=== PATIENT | female | born 1975 | race Caucasian/White ===

== ENCOUNTER 2017-11-30 14:11 | Emergency (ER) | payer OTHER ==
[2017-11-30] MEDS ORDERED: DUONEB 0.5-3 MG/3 ml Neb IH ONE ×2 (14:23→14:59)
[2017-11-30] MEDS ORDERED: TYLENOL 325 MG PO ONE (14:25)
[2017-11-30] MEDS ORDERED: Sodium Chloride 0.9% 1000 ML 1,000 ML IV SCH (14:30)
--- NOTE | 2017-11-30 14:30 | ERPHSYRPT ---
- History of Present Illness Time Seen by Provider: 11/30/17 14:17 Source: patient Physician History: CC: 42 y/o patient recently moved here from [place]. She has 1-2 day hx of fever, chills, rhinorrhea, congestion, ear pressure, sore throat. She now has cough which has caused shortness of breath. No V/D. No rash. LMP Oct. Meds: Lisinopril/HCTZ ILL: HTN. No hx of asthma. Social: Smoker Timing/Duration: day(s) (1-2) Cough Quality/Degree: moderate Allergies/Adverse Reactions: No Known Drug Allergies Allergy (Unverified 03/19/12 16:37) Home Medications: Hydrochlorothiazide 25 mg [hydroDIURIL 25 MG] 25 mg DAILY 11/30/17 [ History] Lisinopril 10 mg [Zestril 10 MG] 10 mg DAILY 11/30/17 [History] Hx Tetanus, Diphtheria Vaccination/Date Given: Yes (2010) - Review of Systems Constitutional: Fever, Chills, Fatigue, Malaise Eyes: No Symptoms Ears, Nose, & Throat: Nose Congestion, Throat Pain Respiratory: Cough, Dyspnea Cardiac: No Chest Pain Abdominal/Gastrointestinal: No Abdominal Pain, No Vomiting, No Diarrhea Genitourinary Symptoms: No Dysuria Skin: No Rash Neurological: Headache All Other Systems: Reviewed and Negative - Past Medical History Pertinent Past Medical History: No - Past Surgical History Past Surgical History: Yes Gastrointestinal: Cholecystectomy Female Surgical History: Section, Tubal Ligation - Social History Smoking Status: Current every day smoker How long have you smoked: 20 Exposure to second hand smoke: Yes Drug Use: none Patient Lives Alone: No - Female History Hx Now: No - Nursing Vital Signs Nursing Vital Signs: Initial Vital Signs Temperature 98.1 F 11/30/17 14:22 Pulse Rate 106 H 11/30/17 14:22 Respiratory Rate 18 11/30/17 14:22 Blood Pressure 140/86 11/30/17 14:22 O2 Sat by Pulse Oximetry 97 11/30/17 14:22 Pain Scale Pain Intensity 8 - Physical Exam General Appearance: alert Eye Exam: PERRL/EOMI Ears, Nose, Throat Exam: normal ENT inspection, dry mucous membranes Neck Exam: normal inspection, non-tender, supple Respiratory Exam: respiratory distress (appears breathless), wheezing (faint) Cardiovascular Exam: regular rate/rhythm, No murmur Gastrointestinal/Abdomen Exam: soft, No tenderness, No distention Back Exam: normal inspection, normal range of motion Extremity Exam: normal inspection, normal range of motion, No calf tenderness, No pedal edema Neurologic Exam: alert, oriented x 3, cooperative, 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 nml as tested, sensation nml, No motor deficits Skin Exam: warm, dry, No rash SpO2 Interpretation: normal SpO2: 99 Oxygen Delivery: Room Air - Course Nursing assessment & vital signs reviewed: Yes EKG Interpreted by Me: RATE (90), Sinus Rhythm, NORMAL AXIS, NORMAL INTERVALS ( QTc 483), NORMAL QRS, NORMAL ST-T - Radiology Exams cxr X-ray Interpretation: Reviewed by me, Negative, No Pneumonia Ordered Tests: Active Orders 24 hr Category Date Time Status House Coordinator STAT Care 11/30/17 14:24 Active EKG-ER Only STAT Care 11/30/17 15:34 Active IV Insertion STAT Care 11/30/17 14:23 Active Pulse Oximetry (ED) STAT Care 11/30/17 14:23 Active CHEST 2 VIEWS (PA AND LAT) Stat Exams 11/30/17 14:23 Taken CBC W DIFF Stat Lab 11/30/17 15:00 Completed CMP Stat Lab 11/30/17 15:00 Completed D-DIMER QUANTITATION Stat Lab 11/30/17 15:00 Completed HCG QUALITATIVE,SERUM Stat Lab 11/30/17 15:00 Completed Lactic Acid Stat Lab 11/30/17 14:23 Completed Lactic Acid Stat Lab 11/30/17 17:08 Results MAGNESIUM Stat Lab 11/30/17 15:00 Completed Manual Differential NC Stat Lab 11/30/17 15:00 Completed VENOUS BLOOD GAS Stat Lab 11/30/17 17:02 Completed VENOUS BLOOD GAS Urgent Lab 11/30/17 15:08 Completed Respiratory Nebulizer STAT RT 11/30/17 14:25 Completed Respiratory Nebulizer STAT RT 11/30/17 18:04 Ordered Medication Summary Generic Name Dose Route Start Last Admin Trade Name Freq PRN Reason Stop Dose Admin Sodium Chloride 1,000 mls @ 250 mls/hr 11/30/17 14:30 11/30/17 14:49 Sodium Chloride 0.9% 1000 Ml IV 12/30/17 14:29 250 mls/hr .Q4H KEYANA Administration Magnesium Sulfate/Dextrose 100 mls @ 100 mls/hr 11/30/17 15:45 11/30/17 17:36 Magnesium 1 Gm / 100 Ml D5w IV 11/30/17 17:44 100 mls/hr Q1H KEYANA Administration Discontinued Medications Generic Name Dose Route Start Last Admin Trade Name Miko PRN Reason Stop Dose Admin Acetaminophen 650 mg 11/30/17 14:25 11/30/17 14:34 Tylenol 325 Mg PO 11/30/17 14:26 650 mg STAT ONE Administration Acetaminophen Confirm 11/30/17 14:31 Tylenol 325 Mg Administered 11/30/17 14:32 Dose 650 mg .ROUTE .STK-MED ONE Albuterol/Ipratropium 3 ml 11/30/17 14:23 11/30/17 15:00 Duoneb 0.5-3 Mg/3 Ml Neb IH 11/30/17 14:24 3 ml STAT ONE Administration Albuterol/Ipratropium Confirm 11/30/17 14:59 Duoneb 0.5-3 Mg/3 Ml Neb Administered 11/30/17 15:00 Dose 3 ml IH .STK-MED ONE Ibuprofen 400 mg 11/30/17 16:42 11/30/17 16:44 Motrin 400 Mg PO 11/30/17 16:43 400 mg STAT ONE Administration Ibuprofen Confirm 11/30/17 16:44 Motrin 400 Mg Administered 11/30/17 16:45 Dose 400 mg .ROUTE .STK-MED ONE Methylprednisolone Sodium Succinate 125 mg 11/30/17 16:18 11/30/17 16:26 Solu-Medrol 125 Mg IV 11/30/17 16:19 125 mg STAT ONE Administration Methylprednisolone Sodium Succinate Confirm 11/30/17 16:21 Solu-Medrol 125 Mg Administered 11/30/17 16:22 Dose 125 mg .ROUTE .STK-MED ONE Potassium Bicarbonate 50 meq 11/30/17 15:12 11/30/17 15:18 K-Lyte 25 Meq PO 11/30/17 15:13 50 meq STAT ONE Administration Potassium Bicarbonate Confirm 11/30/17 15:16 K-Lyte 25 Meq Administered 11/30/17 15:17 Dose 50 meq .ROUTE .STK-MED ONE Lab/Rad Data: Laboratory Result Diagrams 11/30/17 15:00 11/30/17 15:00 Laboratory Results 11/30/17 11/30/17 11/30/17 Range/Units 17:08 17:02 15:08 WBC (4.0-10.5) K/mm3 RBC (4.1-5.4) M/mm3 Hgb (12.0-16.0) gm/dl Hct (35-47) % MCV (78-100) fl MCH (26-32) pg MCHC (32-36) g/dl RDW (11.5-14.0) % Plt Count (150-450) K/mm3 MPV (6-9.5) fl Gran % (36.0-66.0) % Lymphocytes % (24.0-44.0) % Monocytes % (0.0-12.0) % Eosinophils % (0.00-5.0) % Basophils % (0.0-0.4) % Basophils # (0-0.4) D-Dimer (0-500) ng/mL VBG pH 7.39 7.48 H (7.32-7.42) VBG pCO2 at Pat Temp 52 35 L (42-55) mm/Hg VBG pO2 at Pat Temp 24 L 53 H (25-40) mm/Hg VBG HCO3 31.5 H* 26.1 (22-28) meq/L VBG O2 Sat (Otilia) 55.0 L 92.7 L (95-100) VBG Base Excess 5.2 H 2.9 H (-2.0-2.0) VBG Hemoglobin 14.0 14.6 VBG Carboxyhemoglobin 4.5 6.0 (0.0-6.9) % T HGB POC Potassium 3.1 L 2.7 L* (3.5-5.1) Sodium (136-145) mEq/L Potassium (3.5-5.1) mEq/L Chloride (98-107) mEq/L Carbon Dioxide (21-32) mEq/L Anion Gap (5-15) MEQ/L BUN (9-20) mg/dL Creatinine (0.55-1.30) mg/dl Estimated GFR ML/MIN Glucose (70-110) MG/DL Lactic Acid 2.0 (0.4-2.0) Calcium (8.5-10.1) mg/dL Magnesium (1.8-2.4) mg/dL Total Bilirubin (0.2-1.0) mg/dL AST (15-37) U/L ALT (12-78) U/L Alkaline Phosphatase (46-116) U/L Serum Total Protein (6.4-8.2) gm/dL Albumin (3.4-5.0) g/dL Serum , Qual (Negative) Influenza Type A Ag (NEGATIVE) Influenza Type B Ag (NEGATIVE) RSV (PCR) (Negative) 11/30/17 11/30/17 11/30/17 Range/Units 15:00 15:00 15:00 WBC (4.0-10.5) K/mm3 RBC (4.1-5.4) M/mm3 Hgb (12.0-16.0) gm/dl Hct (35-47) % MCV (78-100) fl MCH (26-32) pg MCHC (32-36) g/dl RDW (11.5-14.0) % Plt Count (150-450) K/mm3 MPV (6-9.5) fl Gran % (36.0-66.0) % Lymphocytes % (24.0-44.0) % Monocytes % (0.0-12.0) % Eosinophils % (0.00-5.0) % Basophils % (0.0-0.4) % Basophils # (0-0.4) D-Dimer 391.30 (0-500) ng/mL VBG pH (7.32-7.42) VBG pCO2 at Pat Temp (42-55) mm/Hg VBG pO2 at Pat Temp (25-40) mm/Hg VBG HCO3 (22-28) meq/L VBG O2 Sat (Otilia) (95-100) VBG Base Excess (-2.0-2.0) VBG Hemoglobin VBG Carboxyhemoglobin (0.0-6.9) % T HGB POC Potassium (3.5-5.1) Sodium 140 (136-145) mEq/L Potassium 2.7 L* (3.5-5.1) mEq/L Chloride 102 (98-107) mEq/L Carbon Dioxide 27.2 (21-32) mEq/L Anion Gap 13.5 (5-15) MEQ/L BUN 5 L (9-20) mg/dL Creatinine 0.96 (0.55-1.30) mg/dl Estimated GFR > 60 ML/MIN Glucose 153 H (70-110) MG/DL Lactic Acid (0.4-2.0) Calcium 8.5 (8.5-10.1) mg/dL Magnesium 1.7 L (1.8-2.4) mg/dL Total Bilirubin 0.20 (0.2-1.0) mg/dL AST 41 H (15-37) U/L ALT 70 (12-78) U/L Alkaline Phosphatase 72 (46-116) U/L Serum Total Protein 7.1 (6.4-8.2) gm/dL Albumin 3.4 (3.4-5.0) g/dL Serum , Qual NEGATIVE (Negative) Influenza Type A Ag (NEGATIVE) Influenza Type B Ag (NEGATIVE) RSV (PCR) (Negative) 11/30/17 11/30/17 11/30/17 Range/Units 15:00 14:33 14:23 WBC 8.0 (4.0-10.5) K/mm3 RBC 4.88 (4.1-5.4) M/mm3 Hgb 13.2 (12.0-16.0) gm/dl Hct 39.5 (35-47) % MCV 80.9 (78-100) fl MCH 27.0 (26-32) pg MCHC 33.4 (32-36) g/dl RDW 13.8 (11.5-14.0) % Plt Count 297 (150-450) K/mm3 MPV 9.6 H (6-9.5) fl Gran % 42.4 (36.0-66.0) % Lymphocytes % 34.2 (24.0-44.0) % Monocytes % 13.8 H (0.0-12.0) % Eosinophils % 9.3 H (0.00-5.0) % Basophils % 0.3 (0.0-0.4) % Basophils # 0.02 (0-0.4) D-Dimer (0-500) ng/mL VBG pH (7.32-7.42) VBG pCO2 at Pat Temp (42-55) mm/Hg VBG pO2 at Pat Temp (25-40) mm/Hg VBG HCO3 (22-28) meq/L VBG O2 Sat (Otilia) (95-100) VBG Base Excess (-2.0-2.0) VBG Hemoglobin VBG Carboxyhemoglobin (0.0-6.9) % T HGB POC Potassium (3.5-5.1) Sodium (136-145) mEq/L Potassium (3.5-5.1) mEq/L Chloride (98-107) mEq/L Carbon Dioxide (21-32) mEq/L Anion Gap (5-15) MEQ/L BUN (9-20) mg/dL Creatinine (0.55-1.30) mg/dl Estimated GFR ML/MIN Glucose (70-110) MG/DL Lactic Acid 2.6 H (0.4-2.0) Calcium (8.5-10.1) mg/dL Magnesium (1.8-2.4) mg/dL Total Bilirubin (0.2-1.0) mg/dL AST (15-37) U/L ALT (12-78) U/L Alkaline Phosphatase (46-116) U/L Serum Total Protein (6.4-8.2) gm/dL Albumin (3.4-5.0) g/dL Serum , Qual (Negative) Influenza Type A Ag NEGATIVE (NEGATIVE) Influenza Type B Ag NEGATIVE (NEGATIVE) RSV (PCR) POSITIVE (Negative) - Progress Progress Note: 11/30/17 18:05 She is feeling much better after steroids. Mag and K given. She ambulated well. D-dimer negative. Will Rx prednisone, doxycycline, Potassium, albuterol MDI. Counseled pt/family regarding: lab results, diagnosis, need for follow-up, rad results - Departure Time of Disposition: 18:05 Departure Disposition: Home Clinical Impression: Acute asthmatic bronchitis, Hypokalemia, Smoker Condition: Fair Critical Care Time: No Referrals: BRAULIO GONZALEZ MD [ACTIVE STAFF] - Instructions: Quitting Smoking, Acute Bronchitis, Hypokalemia (DC) Additional Instructions: Rx doxycycline. Rx albuterol MDI. Rx prednisone. Rx potassium. Avoid smoke exposure. Follow up with Dr Gonzalez next week. Return for problems or concerns. Prescriptions: Albuterol Sulfate [Albuterol Sulfate Hfa] 2 puff IH Q4-6HPRN PRN #1 [id number] PRN Reason: cough or wheeze Doxycycline Hyclate 100 mg [Vibramycin 100 MG] 1 tab PO BID #20 tab Potassium Chloride [K-Dur] 10 meq PO BID #30 tab.er.prt Prednisone 20 mg [Deltasone 20 mg] 2 tab PO DAILY #10 tablet
[2017-11-30] MEDS ORDERED: TYLENOL 325 MG ONE (14:31)
[2017-11-30] MEDS ORDERED: Sodium Chloride 0.9% 1000 ML 1,000 ML ONE (14:31)
[2017-11-30 15:09] LABS: Lactic Acid 2.6 (0.4-2.0)
[2017-11-30 15:10] LABS: VBG BASE EXCESS 2.9 (-2.0-2.0); VBG HCO3- 26.1 meq/L (22-28); VBG HEMOGLOBIN 14.6; VBG O2 SATURATION 92.7 (95-100); VBG pH 7.48 (7.32-7.42)
[2017-11-30 15:11] LABS: VBG POTASSIUM 2.7 (3.5-5.1)
[2017-11-30 15:11] LABS: BASOPHIL % 0.3 % (0.0-0.4); Basophil (Absolute #) 0.02 (0-0.4); Eosinophil % 9.3 % (0.00-5.0); Eosinophil (Absolute #) 0.74 (0-0.5); Granulocyte Absolute (ANC) 3.38 (1.4-6.9); Granulocytes % 42.4 % (36.0-66.0); Hematocrit 39.5 % (35-47); Hemoglobin 13.2 gm/dl (12.0-16.0); Lymphocyte (Absolute #) 2.72 (1.0-4.6); Lymphocytes % 34.2 % (24.0-44.0); Mean Cell Volume 80.9 fl (78-100); Mean Corpuscular Hgb Concent. 33.4 g/dl (32-36); Mean Platelet Volume 9.6 fl (6-9.5); Monocytes % 13.8 % (0.0-12.0); Platelet Count 297 K/mm3 (150-450); Red Blood Count 4.88 M/mm3 (4.1-5.4); Red Cell Distribution Width 13.8 % (11.5-14.0)
[2017-11-30] MEDS ORDERED: K-LYTE 25 MEQ PO ONE (15:12)
[2017-11-30 15:14] LABS: INFLUENZA A NEGATIVE (NEGATIVE); INFLUENZA B NEGATIVE (NEGATIVE); RESPIRATORY SYNCTIAL VIRUS POSITIVE (Negative)
[2017-11-30] MEDS ORDERED: K-LYTE 25 MEQ ONE (15:16)
[2017-11-30 15:30] LABS: ALBUMIN 3.4 g/dL (3.4-5.0); ALKALINE PHOSPHATASE 72 U/L (46-116); ANION GAP 13.5 MEQ/L (5-15); BLOOD UREA NITROGEN 5 mg/dL (9-20); CHLORIDE 102 mEq/L (98-107); Calcium 8.5 mg/dL (8.5-10.1); Carbon Dioxide 27.2 mEq/L (21-32); Creatinine 1 0.96 mg/dl (0.55-1.30); EST GLOMERULAR FILTRATION RATE > 60 ML/MIN; Glucose 153 MG/DL (70-110); SGOT/AST 41 U/L (15-37); SGPT/ALT 70 U/L (12-78); SODIUM 140 mEq/L (136-145); Total Protein 7.1 gm/dL (6.4-8.2)
[2017-11-30 15:32] LABS: Potassium 2.7 mEq/L (3.5-5.1)
[2017-11-30] MEDS ORDERED: solu-MEDROL 125 MG IV ONE (16:18)
[2017-11-30] MEDS ORDERED: solu-MEDROL 125 MG ONE (16:21)
[2017-11-30] MEDS ORDERED: Magnesium 1 Gm / 100 Ml D5W*** 100 ML IV ONE ×2 (16:22→17:30)
[2017-11-30] MEDS: Magnesium 1 Gm / 100 Ml D5W*** 100 ML IV SCH ×2 (16:27→17:36)
[2017-11-30] MEDS ORDERED: MOTRIN 400 MG PO ONE (16:42)
[2017-11-30] MEDS ORDERED: MOTRIN 400 MG ONE (16:44)
[2017-11-30 17:22] LABS: VBG BASE EXCESS 5.2 (-2.0-2.0); VBG CARBOXYHEMOGLOBIN 4.5 % T HGB (0.0-6.9); VBG HCO3- 31.5 meq/L (22-28); VBG POTASSIUM 3.1 (3.5-5.1); VBG pH 7.39 (7.32-7.42)
[2017-11-30 17:40] VITALS: BP 105/67; O2SAT 99
[2017-11-30] MEDS ORDERED: Vibramycin 100 MG PO ONE (18:03)
[2017-11-30] MEDS ORDERED: DELTASONE 20 MG PO ONE (18:03)
[2017-11-30] MEDS ORDERED: Klor Con 10 MEQ PO ONE ×2 (18:04→18:13)
[2017-11-30] MEDS ORDERED: PROVENTIL 2.5 MG/3 ML NEB IH ONE ×2 (18:04)
[2017-11-30 18:10] VITALS: PULSE 104
[2017-11-30] MEDS ORDERED: Vibramycin 100 MG ONE (18:13)
[2017-11-30] MEDS ORDERED: DELTASONE 20 MG ONE ×2 (18:13→18:18)
--- NOTE | 2017-11-30 20:48 | XRAY ---
Indication: Cough and dyspnea. Comparison: March 14, 2011. PA/lateral chest clear. Heart and mediastinal structures within normal limits. Bony thorax intact with minimal degenerative changes. Impression: Nonacute chest.
[2017-12-01 02:38] LABS: Eosinophil 6 % (0.00-3.0); Lymphocytes 33 % (24-44); Monocyte 10 % (0.0-12.0); Neutrophils 51 % (36.0-66.0); Platelet Estimate NORMAL (NORMAL); Total Cells Counted 100
== END 2017-11-30 18:42 | disposition home or self-care (01) ==
LOC: ED 14:11
DX: J45.909 Unspecified asthma, uncomplicated (principal); E87.6 Hypokalemia; F17.200 Nicotine dependence, unspecified, uncomplicated
CPT/HCPCS: 36000; 36415; 71046; 80053; 82805; 83605; 83735; 84703; 85025; 85379; 87631; 93005; 93041; 94150; 94640; 96360; 96361; 96365; 96366; 96374; 99285; J2930; J3475; A9270-GY